=== PATIENT | male | born 1960 | race Caucasian/White ===

== ENCOUNTER 2020-04-29 07:25 | Day surgery (SDC) | payer OTHER ==
[2020-04-29] MEDS: Ringers Lactate 1,000 ML IV ONE ×2 (08:14→08:46)
[2020-04-29] MEDS ORDERED: BUPIVACA 0.25%/EPI 0.0005%/PF 30 ML VIAL ONE (08:19)
[2020-04-29] MEDS ORDERED: LIDOCAINE 2% MPF 5 ML VIAL ONE (08:28)
[2020-04-29] MEDS ORDERED: FENTANYL CITR 100 MCG/2 ML ONE (08:28)
[2020-04-29] MEDS ORDERED: propofoL 200 MG/20 ML VIAL IV ONE ×2 (08:28→09:05)
[2020-04-29] MEDS ORDERED: ROCURONIUM 50 MG/5 ML VIAL IV ONE (08:29)
[2020-04-29] MEDS ORDERED: VANCOMYCIN/NS 1 gm 1 GM/250 ML BAG IV ONE (09:00)
[2020-04-29] MEDS ORDERED: KETOROLAC 30 MG/ML INJ ONE (09:33)
[2020-04-29] MEDS ORDERED: dexAMETHasone 10 MG/ML VIAL ONE (09:33)
[2020-04-29] MEDS ORDERED: GLYCOPYRROLATE 0.2 MG/ML SYR ONE (09:41)
[2020-04-29] MEDS ORDERED: ONDANSETRON 4 MG/2 ML VIAL ONE (09:41)
[2020-04-29] MEDS ORDERED: NEOSTIGMINE 1 MG/ML -5 ML ONE (09:51)
[2020-04-29] MEDS ORDERED: HYDROMORPHONE HCL 1 MG/ML INJ ONE (10:22)
[2020-04-29] MEDS ORDERED: PROMETHAZINE INJ 25 MG/ML AMP ONE (10:22)
[2020-04-29] MEDS ORDERED: CODEINE 30MG/APAP 300MG TAB ONE (11:11)
[2020-04-29 14:06] VITALS: TEMP 97; O2SAT 95
[2020-04-29 14:08] VITALS: BP 121/78
--- NOTE | 2020-04-29 20:29 | OP ---
Date of Procedure: 04/29/2020 Surgeon: Branden Smyth MD, Final Finisher: None. Preoperative Diagnosis: Incarcerated umbilical hernia. Postoperative Diagnosis: Incarcerated umbilical hernia. Procedure Performed: Open umbilical hernia repair with 1.7 inch Bard mesh. Estimated Blood Loss: Less than 2 cc. Specimens: Incarcerated preperitoneal fat. Findings: 1.Incarcerated preperitoneal fat in the umbilical hernia as well as omental fat in the umbilical her tashia, approximately a 0.5 cm defect. 2.Small bowel adherent to the hernia defect as well, requiring mobilization. Complications: None. Implants: Bard 1.7 inch round mesh. Transfusion: No blood products given. Disposition: The patient was transferred to recovery room in good condition. Procedure In Detail: After informed consent was obtained, the patient was brought to the operating r oom, prepped and draped in the usual sterile fashion. After adequate anesthesia was achieved, a curv ilinear incision was made under the umbilicus. After appropriately anesthetizing with 0.5% Marcaine with epinephrine with a 15 blade down through subcutaneous tissues, electrocautery was used to dissec t down circumferentially around the hernia sac. The hernia sac contents were partially reduced and t he hernia sac was grasped, elevated, and opened. The preperitoneal fat was then pulled out of the pr eperitoneal space, circumferentially dissected free using electrocautery and removed. Omental fat wa s attached to this as well, which required simple mobilization and removal using electrocautery. Thi s was sent off for pathologic examination. A finger sweep was performed and found a loop of small vida wel in the superior position, superior to the umbilicus, which required simple mobilization and due t o alveolar thin adhesions, this was easily taken down and no obvious injury was appreciated to the sm all bowel. This was done with blunt dissection. No electrocautery was used for this portion. A fin cheryl sweep was performed at the preperitoneal space and the fascia was grasped, elevated, and the 1.7 inch Bard mesh was parachuted in using 0 PDS suture in a circumferential fashion securing it to the B anh mesh ring. The mesh was then placed in the preperitoneal space and while being elevated with [facility] her clamps, was finger swept and found to be in a nice flat position. All sutures were then tied lillian n at this point with good apposition. I then closed the fascia over the top of the mesh with a runni ng PDS suture of 0 size and irrigated the area copiously. The dermal layer was then closed with an i nterrupted 3-0 Vicryl suture and the skin was closed with a 4-0 Monocryl in a running fashion. [place] landeros placed over top. The patient tolerated the procedure well without evidence of complication, tra nsferred to PACU in good condition. All counts were correct at the end of the case. The patient had abdominal binder placed. The patient was in PACU in good condition after the procedure. SIXTO/USAMA Voice ID: [id number] Report ID: [id number]
== END 2020-04-29 11:55 | disposition home or self-care (01) ==
LOC: OR 07:25
PROVIDERS: ATTEND Surgery
PROC: 0WUF0JZ Supplement Abdominal Wall with Synthetic Substitute, Open Approach (ICD-10-PCS; principal; 2020-04-29 09:30)
DX: K42.0 Umbilical hernia with obstruction, without gangrene (principal)
CPT/HCPCS: 49587; 88302; J2704 ×2; J2550; J3010; J1100; J1170; J2710; J3370; J7120; J2405

== ENCOUNTER 2024-08-27 23:19 | Emergency (ER) | payer OTHER ==
--- OUTSIDE RECORDS SUMMARY | 2024-08-27 23:23 | XMS REPORT | Continuity of Care Document ---
Author Name Unknown Address [address] [place] [address] [address] [id number] [facility] Address [address] [facility] [address] [place] [address] Care Team Providers Care [employer] [employer] Name Role Phone Unavailable Unavailable Unavailable Encounters Start Date/Time End Date/Time Encounter Type Admission Type Attending Clinicians Care Facility Care Department Encounter ID Source 2023-09-08 13:27:00 Outpatient [facility] [id number] [facility] 2021-10-29 13:15:04 Outpatient [facility] [id number] [facility]
[2024-08-27] MEDS ORDERED: NITROGLYCERIN 0.4 MG/TAB SL ONE (23:24)
[2024-08-27] MEDS ORDERED: MORPHINE 4 MG/ML SYR ONE ×2 (23:24→23:46)
[2024-08-27] MEDS ORDERED: ASPIRIN 81 MG CHEWABLE TABLET ONE (23:24)
[2024-08-27] MEDS ORDERED: ONDANSETRON 4 MG/2 ML VIAL ONE (23:24)
[2024-08-27] MEDS ORDERED: HEPARIN/D5W 25,000 UNIT/500 ML BAG IV ONE (23:28)
[2024-08-27] MEDS ORDERED: HEPARIN 5000 UNIT/ML 1 ML VIAL ONE (23:39)
[2024-08-27] MEDS ORDERED: LORazepam 2 MG/ML VIAL ONE (23:41)
--- NOTE | 2024-08-27 23:59 | EDPHYS ---
Physician Documentation [facility] Name: Aime Brito II Age: 63 yrs Sex: Male : 1960 Arrival Date: 08/27/2024 Time: 23:19 Bed 2 Private MD: ED Physician Jani Mei HPI: 08/27 23:37 This 63 yrs old Male presents to ER via Ambulatory with complaints of chest dr5 pain. 23:37 Pt reports substernal crushing pain that started 20 minutes prior to arrival. Patient dr5 has history of hypertension, hyperlipidemia, GERD. Pt reports he was at home when the chest pain started.. Patient is a 61-year-old male with history of hypertension hyperlipidemia coming in with mid substernal chest pressure.. Historical: - Allergies: 23:40 PENICILLINS; cp4 - PMHx: 23:40 Hypertensive disorder; Hypercholesterolemia; cp4 - Immunization history:: Adult Immunizations up to date. - Infectious Disease History:: Denies. - Social history:: Smoking status: Patient denies any tobacco usage or history of. ROS: 23:37 Constitutional: as per hpi dr5 Exam: 23:39 Constitutional: This is a well developed, well nourished patient who is awake, alert, dr5 and in no acute distress. Head/Face: Normocephalic, atraumatic. Eyes: Pupils equal round and reactive to light, extra-ocular motions intact. Lids and lashes normal. Conjunctiva and sclera are non-icteric and not injected. Cornea within normal limits. Periorbital areas with no swelling, redness, or edema. Chest/axilla: Normal chest wall appearance and motion. Nontender with no deformity. No lesions are appreciated. 23:39 Chest/axilla: Inspection: normal, Palpation: is normal, Vital Signs: 23:24 BP 138 / 81; Pulse 132; Resp 24; Pulse Ox 99% ; Weight 106.14 kg; Height 5 ft. 8 in. ; vc1 Pain 10/10; 23:56 BP 116 / 79; Pulse 113; Resp 23; Pulse Ox 99% ; cp4 23:24 Body Mass Index 35.58 (106.14 kg, 172.72 cm) vc1 23:24 Pain Scale: Adult vc1 MDM: 23:26 Medical Screening Exam initiated dr5 23:49 Differential Diagnosis STEMI, NSTEMI, Unstable Angina. Data reviewed: vital signs, dr5 nurses notes, lab test result(s), EKG, radiologic studies, I have discussed the patient's presentation/case with the attending Emergency Department Physician;. Consideration of Admission/Observation Patient was admitted/placed on observation. Care significantly affected by the following chronic conditions: Hypertension, Hyperlipidemia. Care significantly affected by the following Social Determinants of Health: Poor access to healthcare and/or lack of insurance, Poor access to transportation, Problems related to employment. Counseling: I had a detailed discussion with the patient and/or guardian regarding the historical points, exam findings, and any diagnostic results supporting the discharge/admit diagnosis, the presence of at least one elevated blood pressure reading (>120/80) during this emergency department visit, the need to transfer to another facility, for higher level of care, [facility] does not immediately have the required specialist, Need for transfer as we do not have electrical laboratory technician available.. Medication response: Nitro x 1 partially relieved pain, morphine markedly relieved the patient's pain. Symptoms have improved. Response to treatment: the patient's symptoms have mildly improved after treatment. Awaiting: transfer to another facility. ED course: EKG sent to running rigger. Dr. Mei spoke with cardiology and received acceptance [facility].. 08/27 23:25 Order name: Basic Metabolic Panel; Complete Time: 00:31 dr5 08/27 23:25 Order name: CBC with Diff [facility] 08/27 23:25 Order name: Troponin HS; Complete Time: 00:31 dr5 08/27 23:30 Order name: Ptt, Activated; Complete Time: 00:32 cp4 08/27 23:30 Order name: PT-INR; Complete Time: 00:32 cp4 08/28 00:11 Order name: Manual Differential EDMS 08/27 23:25 Order name: EKG; Complete Time: 23:25 dr5 08/27 23:25 Order name: Cardiac monitoring; Complete Time: 23:39 dr5 08/27 23:25 Order name: EKG - Nurse/Tech; Complete Time: 23:39 dr5 08/27 23:25 Order name: IV Saline Lock; Complete Time: 23:39 dr5 08/27 23:25 Order name: Labs collected and sent; Complete Time: 23:39 dr5 08/27 23:25 Order name: O2 Per Protocol; Complete Time: 23:39 dr5 08/27 23:25 Order name: O2 Sat Monitoring; Complete Time: 23:39 dr5 Administered Medications: 23:30 Drug: Aspirin PO Chewable Tablet 324 mg PO once; 81 mg tablets x 4 Route: PO; cp4 23:30 Drug: Ondansetron IVP 4 mg IVP once; over 2 minutes Route: IVP; Site: left antecubital; cp4 23:49 Follow up: Response: No adverse reaction; Nausea is decreased cp4 23:30 Drug: Nitroglycerin Sublingual 0.4 mg Sublingual once Route: Sublingual; cp4 23:49 Follow up: Response: No adverse reaction cp4 23:35 Drug: Heparin ([place]-Bolus No thrombolytic) - HEParin IVP 60 units/kg IVP once; Max 5000 cp4 units {Co-Signature: vc1 (Opal Talbot RN).} Route: IVP; Site: left antecubital; 23:50 Follow up: Response: No adverse reaction cp4 23:35 Drug: Heparin ([place] Drip) 12 units/kg/[place] - ([place] [address] units, D5W IV 500 ml) IV at cp4 calculated rate Per protocol; Max initial rate 1000 units/hr {Co-Signature: vc1 (Opal Talbot RN).} Route: IV; Rate: calculated rate; Site: left antecubital; 23:37 Drug: morphine IVP or IV 4 mg IVP once over 4 mins Route: IVP; Infused Over: 4 mins; cp4 Site: left antecubital; 23:49 Follow up: Response: No adverse reaction; Pain is unchanged, physician notified cp4 23:44 Drug: Ativan IVP 1 mg IVP once Route: IVP; Site: left antecubital; cp4 23:49 Drug: morphine IVP or IV 4 mg IVP once over 4 mins Route: IVP; Infused Over: 4 mins; cp4 Site: left antecubital; Disposition: 23:40 I agree with the assessment and plan of care. I reviewed the patient's care provided by 2 Advanced Practice Provider \T\ agree w/ the diagnosis \T\ care plan. I personally saw the pt \T\ performed a substantive portion of the visit, incldng all aspects of the (History/Exam/Medical Decision Making). Patient with anterolateral ST elevations concerning for STEMI. I discussed the case personally with the running rigger at [facility], will load with full dose aspirin, bolus dose heparin and start him on a heparin drip, cardiology recommended holding on antiplatelet agents at this time. Patient and staff updated regarding plan of care.. Disposition Summary: 08/27/24 23:59 Transfer Ordered Notes: Transfer Location: Other [facility] dr5 Reason: Higher level of care dr5 Condition: Critical dr5 Problem: new dr5 Symptoms: are unchanged dr5 Accepting Physician: Dr. Allegra Strange(08/28/24 00:52) vc1 Diagnosis - ST elevation (STEMI) myocardial infarction of unspecified site dr5 Forms: - Medication Reconciliation Form dr5 - SBAR form dr5 Signatures: Dispatcher [employer] EDMS Opal Talbot RN RN vc1 Jani Mei MD MD ec2 Ruby Song cp4 Justen Hunter, SALES FLOOR TEAM MEMBER-C SALES FLOOR TEAM MEMBER-Cdr5 Opal Talbot RN vc1 Corrections: (The following items were deleted from the chart) 23:30 23:30 PTT, ACTIVATED+COAG.LAB.BRZ ordered. EDMS EDMS 23:30 23:30 PROTIME (+INR)+COAG.LAB.BRZ ordered. EDMS EDMS 23:42 23:40 Allergies: No Known Allergies; cp4 cp4 23:42 23:40 Allergies: Tetanus Vaccines \T\ Toxoid; cp4 cp4 23:51 23:32 PROTIME (+INR)+COAG.LAB.BRZ ordered. EDMS EDMS 23:51 23:32 PTT, ACTIVATED+COAG.LAB.BRZ ordered. EDMS EDMS 08/28 00:52 08/27 23:59 Dr. Allegra Strange dr5 vc1
--- NOTE | 2024-08-27 23:59 | ER ---
Nurse's Notes [facility] Name: Aime Brito II Age: 63 yrs Sex: Male : 1960 Arrival Date: 08/27/2024 Time: 23:19 Bed 2 Private MD: Diagnosis: ST elevation (STEMI) myocardial infarction of unspecified site Presentation: 08/27 23:24 Chief complaint: Patient states: "I think I am dying, help me please". Coronavirus vc1 screen: Client denies travel out of the [place] in the last 14 days. At this time, the client does not indicate any symptoms associated with coronavirus-19. Ebola Screen: Patient negative for fever greater than or equal to 101.5 degrees Fahrenheit, and additional compatible Ebola Virus Disease symptoms Patient denies exposure to infectious person. Patient denies travel to an Ebola-affected area in the 21 days before illness onset. No symptoms or risks identified at this time. Initial Sepsis Screen: Does the patient meet any 2 criteria? RR > 20 per min. HR > 90 bpm. Yes Does the patient have a suspected source of infection? No. Patient's initial sepsis screen is negative. Risk Assessment: Do you want to hurt yourself or someone else? Patient reports no desire to harm self or others. Onset of symptoms was August 27, 2024. 23:24 Method Of Arrival: Ambulatory vc1 23:24 Acuity: GORAN 2 vc1 Historical: - Allergies: 23:40 PENICILLINS; cp4 - PMHx: 23:40 Hypertensive disorder; Hypercholesterolemia; cp4 - Immunization history:: Adult Immunizations up to date. - Infectious Disease History:: Denies. - Social history:: Smoking status: Patient denies any tobacco usage or history of. Screenin:26 Abuse screen: Denies threats or abuse. Nutritional screening: No deficits noted. vc1 Tuberculosis screening: No symptoms or risk factors identified. 23:40 [facility] ED Fall Risk Assessment (Adult) History of falling in the last 3 months, cp4 including since admission No falls in past 3 months (0 pts) Confusion or Disorientation No (0 pts) Intoxicated or Sedated No (0 pts) Impaired Gait No (0 pts) Mobility Assist Device Used No (0 pt) Altered Elimination No (0 pt) Score/Fall Risk Level 0 - 2 = Low Risk Oriented to surroundings, Maintained a safe environment, Assessed \\T\\ reinforced patient's understanding of fall precautions, Hourly rounding (assess needs \\T\\ fall precautionary measures) done. Assessment: 23:25 General: Appears distressed, uncomfortable, Behavior is cooperative, appropriate for cp4 age, anxious. Pain: Complains of pain in chest Pain does not radiate. Pain currently is 10 out of 10 on a pain scale. 23:25 Neuro: Level of Consciousness is awake, alert, obeys commands, Oriented to person, cp4 place, time, situation. Cardiovascular: Reports chest pain, vomiting, Patient's skin is warm and dry. Rhythm is sinus tachycardia Chest pain is described as "worst pain of my life". Respiratory: Airway is patent Respiratory effort is even, unlabored. GI: Parent/caregiver reports the patient having nausea, vomiting. : No signs and/or symptoms were reported regarding the genitourinary system. EENT: No signs and/or symptoms were reported regarding the EENT system. Derm: No signs and/or symptoms reported regarding the dermatologic system. Musculoskeletal: No signs and/or symptoms reported regarding the musculoskeletal system. Vital Signs: 23:24 BP 138 / 81; Pulse 132; Resp 24; Pulse Ox 99% ; Weight 106.14 kg; Height 5 ft. 8 in. ; vc1 Pain 10/10; 23:56 BP 116 / 79; Pulse 113; Resp 23; Pulse Ox 99% ; cp4 23:24 Body Mass Index 35.58 (106.14 kg, 172.72 cm) vc1 23:24 Pain Scale: Adult vc1 ED Course: 23:24 Patient arrived in ED. vc1 23:24 Justen Hunter FNP-C is PHCP. dr5 23:24 Jani Mei MD is Attending Physician. dr5 23:26 Triage completed. vc1 23:29 Ruby Song is Primary Nurse. cp4 23:37 Inserted saline lock: 20 gauge in left antecubital area, using aseptic technique. Blood rv1 collected. Flushed with 10 mL NS. 23:38 Inserted saline lock: 22 gauge in right hand, using aseptic technique. Flushed with 10 rv1 mL NS. 23:39 PT-INR Sent. rv1 23:39 Ptt, Activated Sent. rv1 23:39 Basic Metabolic Panel Sent. rv1 23:39 CBC with Diff Sent. rv1 23:39 Troponin HS Sent. rv1 23:40 No provider procedures requiring assistance completed. cp4 23:40 Placed in gown. Bed in low position. Call light in reach. Side rails up X2. cp4 23:57 Arm band placed on right wrist. Patient placed in waiting room. cp4 08/28 00:08 [id number] called [facility] for transfer. talked to Radha. 233 Dr. Allegra Strange accepted sp pt 2342 Radha Denton admin approval to the Handle Assembler report number [phone] transfer center will put to the labor arbitrator hearing office. [facility] will pick remover Gamar Crew bring to [facility] pick remover pt--- [facility] will take [employer] crew back to Fwd: Power station and fly from [employer] station. talked to Young. 00:52 Patient transferred, IV remains in place. vc1 Administered Medications: 08/27 23:30 Drug: Aspirin PO Chewable Tablet 324 mg PO once; 81 mg tablets x 4 Route: PO; cp4 23:30 Drug: Ondansetron IVP 4 mg IVP once; over 2 minutes Route: IVP; Site: left antecubital; cp4 23:49 Follow up: Response: No adverse reaction; Nausea is decreased cp4 23:30 Drug: Nitroglycerin Sublingual 0.4 mg Sublingual once Route: Sublingual; cp4 23:49 Follow up: Response: No adverse reaction cp4 23:35 Drug: Heparin ([place]-Bolus No thrombolytic) - HEParin IVP 60 units/kg IVP once; Max 5000 cp4 units {Co-Signature: vc1 (Opal Talbot RN).} Route: IVP; Site: left antecubital; 23:50 Follow up: Response: No adverse reaction cp4 23:35 Drug: Heparin ([place] Drip) 12 units/kg/[place] ([place] [address] units, D5W IV 500 ml) IV at cp4 calculated rate Per protocol; Max initial rate 1000 units/hr {Co-Signature: vc1 (Opal Talbot RN).} Route: IV; Rate: calculated rate; Site: left antecubital; 23:37 Drug: morphine IVP or IV 4 mg IVP once over 4 mins Route: IVP; Infused Over: 4 mins; cp4 Site: left antecubital; 23:49 Follow up: Response: No adverse reaction; Pain is unchanged, physician notified cp4 23:44 Drug: Ativan IVP 1 mg IVP once Route: IVP; Site: left antecubital; cp4 23:49 Drug: morphine IVP or IV 4 mg IVP once over 4 mins Route: IVP; Infused Over: 4 mins; cp4 Site: left antecubital; Medication: 23:40 VIS not applicable for this client. cp4 Outcome: 23:59 ER care complete, transfer ordered by MD. capone 08/28 00:51 Transferred Note: ground EMS to airport for life flight due to weather vc1 Condition: stable Instructed on the need for transfer, 00:52 Patient left the ED. vc1 Addendum: 08/31/2024 19:53 Addendum: Other 08/28/2024 \\T\\0050 Pt administered 50mg TNK by lifeflight nurse as headed vc1 out the door, per Medical provider. Signatures: Sasha Sharpe Vanessa, RN RN vc1 Carlene Toussaint1 Ruby Song cp4 Justen Hunter, AUTOMOTIVE CENTER MANAGER-C AUTOMOTIVE CENTER MANAGER-Cdr5 Opal Talbot RN vc1 Corrections: (The following items were deleted from the chart) 08/27 23:42 23:40 Allergies: No Known Allergies; cp4 cp4 23:42 23:40 Allergies: Tetanus Vaccines \\T\\ Toxoid; cp4 cp4
[2024-08-28 00:05] LABS: Absolute Basophils 0.1 K/uL (0-0.5); Absolute Eosinophils 0.6 K/uL (0-0.5); Absolute Lymphocytes (CBC) 4.4 K/uL (0.7-4.9); Absolute Monocytes 1.7 K/uL (0.1-1.3); Absolute Neutrophil 16.7 K/uL (1.8-8.0); Basophils % 0.6 % (0-1.3); Eosinophils % 2.5 % (0-4.4); Hematocrit 47.3 % (39.6-49.0); Hemoglobin 15.6 g/dL (13.6-17.9); Lymphocytes % 18.7 % (15.3-44.8); MCH 30.1 pg (27.0-35.0); MCHC 32.9 g/dL (32.0-36.0); MCV 91.3 fL (80-100); MPV 8.3 fL (7.6-11.3); Monocytes % 7.1 % (3.3-12.3); Neutrophils % 71.1 % (41.7-73.7); Nucleated Red Blood Cells % 0.1 % (0-0); Platelets 292 thou/uL (152-406); RBC Red Blood Cell Count 5.18 M/uL (4.33-5.43); Red Cell Distribution Width 14.4 % (12.1-15.2)
[2024-08-28 00:08] LABS: PT Prothrombin Time 10.9 SECONDS (9.4-12.5); PTT, Activated Partial Thromb 31.2 SECONDS (24.3-36.9); Protime INR 0.97
[2024-08-28] MEDS ORDERED: TENECTEPLASE 50 MG/10 ML VIAL IV ONE (00:09)
[2024-08-28 00:18] LABS: Anion Gap 12.7 mEq/L (5.0-15.0); Potassium 3.7 mEq/L (3.5-5.1); Troponin High Sensitivity 10.5 pg/mL (<58.9)
[2024-08-28 01:03] LABS: Band Neutrophils 6 % (0-1); Differential Total Cells Count 100; Eosinophils 3 % (0-3); Lymphocytes 26 % (15-42); Monocytes 1 % (0-10); Reactive Lymphocytes 6 %; Segmented Neutrophils 58 % (40-80)
[2024-08-28 01:04] LABS: Blood Morphology Comment NOT SEEN (NOT SEEN); Platelet Estimate ADEQ
[2024-08-28 06:44] VITALS: O2SAT 99
[2024-08-28 06:45] VITALS: BP 116/79
--- NOTE | 2024-09-01 16:04 | EKG ---
Test Date: 2024-08-27 Test Time: 23:19:07 Supervisor Electric: NAHUN MEASUREMENT RESULTS: Intervals: Rate: 130 [place]: 140 QRSD: 84 QT: 302 QTc: 444 [place]: P: 62 [place]: 140 QRS: 35 T: -1 INTERPRETIVE STATEMENTS: Sinus tachycardia ST elevation, consider anterolateral injury or acute infarct ACUTE [place] Abnormal ECG No previous ECG available for comparison Electronically Signed On 09-01-24 15:55:05 STAMP CLASSIFIER by Francisco Llanos
== END 2024-08-28 00:52 | disposition short-term general hospital (02) ==
LOC: ER 23:19
DX: I21.3 ST elevation (STEMI) myocardial infarction of unspecified site (principal); I10 Essential (primary) hypertension; E78.00 Pure hypercholesterolemia, unspecified
CPT/HCPCS: 93005; 85025; 80048; 36415; 85610; 85730; 84484; 96375; 96374; 99285; J1644; J3101; J2405